=== PATIENT | male | born 1970 | race African-American/Black ===

== ENCOUNTER 2016-08-27 16:09 | Emergency (ER) | payer OTHER ==
[2016-08-27] MEDS ORDERED: ASPIRIN 81 MG TABLET, CHEWABLE PO ONE (16:24)
--- NOTE | 2016-08-27 16:24 | ER Document Report ---
ED Medical Screen (RME) - General Chief Complaint: Back Pain Stated Complaint: LOWER BACK PAIN Time seen by provider: 16:19 Mode of Arrival: Ambulatory Information source: Patient Notes: 46 yo male presents to ed for pain in the lump right lower back. Chest pain earlier today none now it gets tight and he gets short of breath. denies CAD for himself or family. - HPI Onset: This morning Onset/Duration: Better Quality of pain: Pressure, Sharp Severity: Severe Pain Level: 5 Associated Symptoms: Chest pain - earlier, Shortness of breath, Other - lump in left lower back Exacerbated by: Movement Relieved by: Denies Similar symptoms previously: Yes Recently seen / treated by doctor: No - Related Data Smoking: Cigar - B&M 3-4 Frequency of alcohol use: Heavy - 2-3 a day Drug Abuse: None Allergies/Adverse Reactions: No Known Allergies Allergy (Unverified 08/27/16 16:19)
--- NOTE | 2016-08-27 16:57 | ER Document Report ---
ED General - General Chief Complaint: Chest Pain Stated Complaint: LOWER BACK PAIN Time seen by provider: 16:40 Mode of Arrival: Ambulatory Information source: Patient Notes: 46-year-old male who reports bilateral upper chest tightness while driving this afternoon lasting 3-4 minutes and then resolving. The patient reports she's had multiple episodes like this over the past year sometimes associated with shortness of breath but not associated diaphoresis nausea or vomiting. He reports a tightness will be nonradiating and is not associated with eating or exertion or cough. He reports he hasn't sought medical care for previously. He reports being asymptomatic now. He denies any recent history of trauma long travel or immobilization does that he had a drive to [place] last week. Physical Exam: General: Alert, appears well. HEENT: Normocephalic. Atraumatic. PERRLA. Extraocular movements intact. Oropharynx clear. Neck: Supple. Non-tender. No JVD Respiratory: No respiratory distress. Clear and equal breath sounds bilaterally. Palpation does not reproduce tenderness Cardiovascular: Regular rate and rhythm. Abdominal: Normal Inspection. Soft, non-tender. No distension. Normal Bowel Sounds. Back: Non-tender. No deformity or step off. Extremities: Moves all four extremities. Upper extremities: Normal inspection. Non-tender. Normal color. Normal ROM. Normal temperature. Lower extremities: Normal inspection. Non-tender. No edema. Normal color. Normal ROM. Normal temperature. 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 Normal Mood. Skin: Warm. Dry. Normal color. TRAVEL OUTSIDE OF THE [place] IN LAST 30 DAYS: No - Related Data Allergies/Adverse Reactions: No Known Allergies Allergy (Unverified 08/27/16 16:19) Past Medical History - General Information source: Patient - Social History Smoking Status: Current Some Day Smoker Cigarette use (# per day): No - smokes cigars. Chew tobacco use (# tins/day): No Frequency of alcohol use: Heavy - 2-3 a day Drug Abuse: None Family History: denies: CAD Patient has suicidal ideation: No Patient has homicidal ideation: No - Past Medical History Cardiac Medical History: Reports: None Denies: Hx DVT, Hx Hypercholesterolemia, Hx Hypertension Pulmonary Medical History: Reports: None Endocrine Medical History: Denies: Hx Diabetes Mellitus Type 1, Hx Diabetes Mellitus Type 2 Review of Systems - Review of Systems Constitutional: denies: Chills, Fever, Weakness EENT: denies: Ear pain, Throat pain Cardiovascular: denies: Palpitations, Dizziness, Lightheaded Respiratory: denies: Cough, Wheezing Gastrointestinal: denies: Abdominal pain, Nausea, Vomiting, Blood in vomit, Black stools Genitourinary: denies: Burning, Dysuria Musculoskeletal: Back pain - Patient reports for at least the past year he has had an area of swelling to the left mid back which is occasionally painful. This is the back pain complaint for which he originally presented to triage though after arrival in triage he then indicated the chest pain was real reason that prompted his emergency department visit Skin: denies: Rash Hematologic/Lymphatic: denies: Swollen glands Neurological/Psychological: denies: Weakness, Numbness Physical Exam - Vital signs Vitals: Temp Pulse Resp BP Pulse Ox 97.7 F 97 16 129/78 H 98 08/27/16 16:18 08/27/16 16:18 08/27/16 16:18 08/27/16 16:18 08/27/16 16:18 Course - Re-evaluation Re-evalutation: 08/27/16 17:57 Patient remains asymptomatic drinks an emergent part. Heart score 0. perc Score 0. 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 CT finds lipoma accounting for his symptoms and his left back which is consistent with his clinical diagnosis. He is counseled that these are sometimes surgically removed but this is optional for the patient he indicated he was not interested in that at this point so he will not receive a surgical referral. Etiology for his chest discomfort is unclear but he is certainly at low risk for any life or limb threatening condition given his benign presentation and unremarkable workup - Vital Signs Vital signs: Temp Pulse Resp BP Pulse Ox 97.7 F 99 16 129/78 H 100 08/27/16 16:19 08/27/16 16:19 08/27/16 16:19 08/27/16 16:19 08/27/16 16:19 - Laboratory Result Diagrams: 08/27/16 16:50 08/27/16 16:50 Laboratory results interpreted by me: 08/27/16 08/27/16 16:50 16:50 Hgb 13.3 L Creatine Kinase 230 H - Diagnostic Test Radiology reviewed: Reports reviewed - EKG Interpretation by Me Additional EKG results interpreted by me: 08/27/16 16:57 EKG reviewed by myself shows sinus rhythm at 82 no acute changes Discharge - Discharge Clinical Impression: Chest pain Qualifiers: Chest pain type: unspecified Qualified Code(s): R07.9 - Chest pain, unspecified Lipoma Qualifiers: Lipoma location: trunk Qualified Code(s): D17.1 - Benign lipomatous neoplasm of skin and subcutaneous tissue of trunk Condition: Stable Disposition: HOME, SELF-CARE Additional Instructions: Chest Pain of Unclear Cause The exact cause of your chest pain isn't clear. Fortunately, there is no evidence of a dangerous medical condition. Further testing may be required to find the source of the pain. Most often, we find that this pain is coming from the chest wall -- the muscles or rib joints in the chest. But chest pain can come from the lung and lung lining, the esophagus, the heart valves or heart lining, and even the stomach or gallbladder. Rest. Eat lightly until the pain is gone. We may prescribe medicine for pain and inflammation. You should call the physician immediately if the pain radiates to the shoulder, jaw or arms; if you start to run a fever or develop a cough; or if you develop shortness of breath, or other new or alarming symptoms. Referrals: WILDER SCHMIDT MD [ACTIVE STAFF] - Follow up as needed
[2016-08-27 17:12] LABS: ABSOLUTE EOSINOPHILS # (AUTO) 0.3 10^3/uL (0.0-0.6); ABSOLUTE LYMPHOCYTES (AUTO) 2.3 10^3/uL (0.5-4.7); ABSOLUTE MONOCYTES (AUTO) 0.5 10^3/uL (0.1-1.4); ABSOLUTE NEUT (AUTO) 4.7 10^3/uL (1.7-8.2); BASOPHILS % (AUTO) 0.3 % (0-2); EOSINOPHILS % (AUTO) 3.8 % (0-6); HEMATOCRIT 39.7 % (37.9-51.0); HEMOGLOBIN 13.3 g/dL (13.5-17.0); HGB HCT DIFFERENCE 0.2; LYMPHOCYTES % (AUTO) 29.1 % (13-45); MEAN CORPUSCULAR HGB CONC 33.5 g/dL (32.0-36.0); MEAN CORPUSCULAR VOLUME 87 fl (80-97); MONOCYTES % (AUTO) 6.6 % (3-13); RED BLOOD COUNT 4.59 10^6/uL (4.35-5.55); RED CELL DISTRIBUTION WIDTH 13.8 % (11.5-14.0); SEGMENTED NEUTROPHILS % (AUTO) 60.2 % (42-78); WHITE BLOOD COUNT 7.8 10^3/uL (4.0-10.5)
[2016-08-27 17:30] LABS: ALANINE AMINOTRANSFERASE 42 U/L (21-72); ALBUMIN 4.6 g/dL (3.5-5.0); ALKALINE PHOSPHATASE 64 U/L (38-126); ANION GAP 13 (5-19); ASPARTATE AMINO TRANSFERASE 24 U/L (17-59); BILIRUBIN,TOTAL 0.3 mg/dL (0.2-1.3); BLOOD UREA NITROGEN 18 mg/dL (7-20); CALCIUM 9.7 mg/dL (8.4-10.2); CARBON DIOXIDE 24 mmol/L (22-30); CHLORIDE 107 mmol/L (98-107); CREATINE KINASE 230 U/L (55-170); GLUCOSE 94 mg/dL (75-110); MAGNESIUM 2.2 mg/dL (1.6-2.3); SODIUM 143.7 mmol/L (137-145); TOTAL PROTEIN 7.2 g/dL (6.3-8.2)
[2016-08-27 17:39] LABS: CREATINE KINASE MB 1.18 ng/mL (<4.55)
[2016-08-27 17:41] LABS: TROPONIN I < 0.012 ng/mL
--- NOTE | 2016-08-27 17:44 | EKG REPORT ---
SEVERITY:- NORMAL ECG - SINUS RHYTHM : Confirmed by: Jason Morton 27-Aug-2016 17:43:31
[2016-08-27 18:34] VITALS: BP 132/81
== END 2016-08-27 18:30 | disposition home or self-care (01) ==
LOC: ER 16:09 → EDBD 16:09 → ER 18:30
DX: R07.89 Other chest pain (principal); D17.1 Benign lipomatous neoplasm of skin and subcutaneous tissue of trunk; R06.02 Shortness of breath; F17.290 Nicotine dependence, other tobacco product, uncomplicated
CPT/HCPCS: 36415; 71020; 74176; 80053; 82550; 82553; 83735; 84484; 85025; 93005; 93010; 99284